=== PATIENT | female | born 1980 | race Caucasian/White ===

== ENCOUNTER 2017-06-01 09:18 | Day surgery (SDC) | payer BC ==
[~2017-06-01 09:18] MED LIST: Lactated Ringers 1,000 ML IV SCH; Lidocaine 1%/Sod Bicarbonate in NS 8.4% 1 ML Syringe IDERM PRN; Sodium Chloride 0.9% 10 ML Syringe FLUSH PRN
--- NOTE | 2017-06-01 10:34 | PCM.PREANE ---
Preanesthetic Assessment - Anesthesia/Transfusion/Family Hx Anesthesia History: Prior Anesthesia Without Reaction Family History of Anesthesia Reaction: No Transfusion History: No Prior Transfusion(s) - Review of Systems General: No Symptoms Pulmonary: No Symptoms Cardiovascular: No Symptoms Gastrointestinal: No Symptoms, Diarrhea (IF EATS ANYTHING) Neurological: No Symptoms Other: Reports: None - Physical Assessment NPO Status Date: 05/31/17 NPO Status Time: 22:30 O2 Sat by Pulse Oximetry: 93 Respiratory Rate: 18 Vital Signs: Last Vital Signs Temp 97.4 F 06/01/17 09:50 Pulse 73 06/01/17 09:50 Resp 18 06/01/17 09:50 BP 121/67 06/01/17 09:50 Pulse Ox 93 L 06/01/17 09:50 Height: 5 ft 6 in Weight: 162.386 kg ASA Class: 2 Mental Status: Alert & Oriented x3 Airway Class: Mallampati = 1 Dentition: Reports: Normal Dentition Thyro-Mental Finger Breadths: 3 Mouth Opening Finger Breadths: 3 ROM/Head Extension: Full Lungs: Clear to Auscultation, Normal Respiratory Effort Cardiovascular: Regular Rate, Regular Rhythm - Lab Values: Laboratory Last Values Urine HCG, Qual Negative (NEGATIVE) 06/01/17 09:58 - Allergies Allergies/Adverse Reactions: Allergies Allergy/AdvReac Type Severity Reaction Status Date / Time No Known Allergies Allergy Verified 05/31/17 16:29 - Blood Blood Available: No - Acknowledgements Anesthesia Type Planned: MAC Pt an Appropriate Candidate for the Planned Anesthesia: Yes Alternatives and Risks of Anesthesia Discussed w Pt/Guardian: Yes Pt/Guardian Understands and Agrees with Anesthesia Plan: Yes PreAnesthesia Questionnaire HEENT History: Reports: Allergic Rhinitis Cardiovascular History: Reports: None Respiratory History: Reports: Other (See Below) Other Respiratory History: cough, un diagnosed sleep apnea Gastrointestinal History: Reports: None Genitourinary History: Reports: None 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 History: Reports: Polycystic Ovaries Musculoskeletal History: Reports: None Neurological History: Reports: None Endocrine/Metabolic History: Reports: Obesity/BMI 30+ Hematologic History: Reports: None Immunologic History: Reports: None Oncologic (Cancer) History: Reports: None Dermatologic History: Reports: None - Past Surgical History Head Surgeries/Procedures: Reports: None HEENT Surgical History: Reports: None, Myringotomy w Tube(s), Tonsillectomy Cardiovascular Surgical History: Reports: None Respiratory Surgical History: Reports: None GI Surgical History: Reports: Cholecystectomy Female Surgical History: Reports: None Male Surgical History: Reports: None Endocrine Surgical History: Reports: None Neurological Surgical History: Reports: None Musculoskeletal Surgical History: Reports: None Oncologic Surgical History: Reports: None Dermatological Surgical History: Reports: None - SUBSTANCE USE Smoking Status *Q: Current Every Day Smoker (1 PPD) Tobacco Use Within Last Twelve Months: Cigarettes Second Hand Smoke Exposure: Yes Days Per Week of Alcohol Use: 0 Recreational Drug Use History: No - HOME MEDS Home Medications: Home Meds Lactobacillus Combination No.4 [Probiotic] 1 cap PO DAILY 05/31/17 [History] Levonorgestrel [Mirena] 1 unit VAG ASDIRECTED 05/31/17 [History] Pantoprazole Sodium [Protonix] 40 mg PO DAILY 05/31/17 [History] Ranitidine HCl [Zantac] 150 mg PO DAILY 05/31/17 [History] Sucralfate [Carafate] 1 gm PO QID 05/31/17 [History] - CURRENT (IN HOUSE) MEDS Current Meds: Current Medications Lactated Ringer's (Ringers, Lactated) 1,000 mls @ 125 mls/hr IV ASDIRECTED SIXTO Stop: 06/01/17 23:00 Lidocaine/Sodium Bicarbonate (Buffered Lidocaine 1% In Ns 8.4%) 0.25 ml IDERM ONETIME PRN PRN Reason: Prior to IV Start Stop: 06/01/17 18:00 Sodium Chloride (Saline Flush) 10 ml FLUSH ASDIRECTED PRN PRN Reason: Keep Vein Open Stop: 06/01/17 18:00
[2017-06-01] MEDS ORDERED: Propofol 200 MG/20 ML SDV ONE ×2 (10:41→10:42)
[2017-06-01] MEDS ORDERED: fentaNYL 100 MCG/2 ML SDV ONE (10:41)
[2017-06-01] MEDS ORDERED: Midazolam 1 MG/ML 2 ML SDV ONE (10:42)
--- NOTE | 2017-06-01 11:54 | PCM.OPNOTE ---
- General Post-Op/Procedure Note Date of Surgery/Procedure: 06/01/17 Operative Procedure(s): egd with bx and colonosocopy to cecum Pre Op Diagnosis: epigastric pain and change in bowel habits Post-Op Diagnosis: Same Anesthesia Technique: MAC Primary Surgeon: Huey Curiel EBL in mLs: 0 Complications: None Condition: Good
--- NOTE | 2017-06-01 11:56 | PCM48HPAN ---
Post Anesthesia Note - EVALUATION WITHIN 48HRS OF ANESTHETIC Vital Signs in Normal Range: Yes Patient Participated in Evaluation: Yes Respiratory Function Stable: Yes Airway Patent: Yes Cardiovascular Function Stable: Yes Hydration Status Stable: Yes Pain Control Satisfactory: Yes Nausea and Vomiting Control Satisfactory: Yes Mental Status Recovered: Yes Resp Rate: 20
--- NOTE | 2017-06-02 06:58 | OR ---
DATE OF OPERATION: 06/01/2017 SURGEON: Huey Curiel MD PREOPERATIVE DIAGNOSIS: Epigastric pain. POSTOPERATIVE DIAGNOSIS: Epigastric pain. OPERATION PERFORMED: Esophagogastroduodenoscopy with biopsy. FINDINGS: Some erythema suggesting of duodenitis in the duodenal bulb and thinning of the gastric mucosa around the antrum suggesting gastritis. ANESTHESIA: Done under IV sedation. DESCRIPTION OF PROCEDURE: The patient was taken to the endoscopy room, placed in a supine position, connected to monitoring equipment, and given IV sedation. She was placed in the left lateral position. Bite block was inserted and video Olympus gastroscope placed in the posterior oropharynx, under direct vision, threaded past the cricopharyngeus, down the esophagus, and into the stomach. The stomach was insufflated, and the scope passed through the pylorus to second portion of the duodenum. It was slowly withdrawn showing normal second portion of the duodenum, but the duodenal bulb showed the findings as described above. The scope was withdrawn to the antrum, which also showed some thinning of gastric mucosa suggesting gastritis, which was biopsied for H. pylori. Body, cardia, and fundus of the stomach did not show any pathology. J-maneuver demonstrated an intact hiatus. Scope was withdrawn to the GE junction, which was sharp and showed just some chronic esophagitis. No acute pathology. The GE junction was located at 38 cm. The rest of the esophagus was viewed as the scope withdrawn was unremarkable. The patient tolerated the procedure. Specimens sent to pathology in a labeled container and IV sedation continued for colonoscopy. ESTIMATED BLOOD LOSS: MMODAL /[id number]
--- NOTE | 2017-06-02 06:58 | OR ---
DATE OF OPERATION: 06/01/2017 SURGEON: Huey Curiel MD PREOPERATIVE DIAGNOSIS: Change in bowel habits. POSTOPERATIVE DIAGNOSIS: Change in bowel habits. OPERATION PERFORMED: Colonoscopy to cecum. FINDINGS: A normal study. ANESTHESIA: Procedure done under IV sedation. DESCRIPTION OF PROCEDURE: The patient was taken to the treatment room, connected to monitoring equipment, and given IV sedation for upper GI endoscopy, which was continued for colonoscopy. She was placed in left lateral position. Perianal area was inspected and was normal. Rectal exam showed good sphincter tone. A video Olympus colonoscope was then introduced and threaded up without problem to the cecum, where the appendicular orifice and ileocecal valve were noted. Prep was excellent throughout the colon. [place] cleansing score grade A. The scope was slowly withdrawn showing the cecum, ascending colon, transverse colon, descending colon, sigmoid colon, and rectum. The patient tolerated the procedure. The above noted was found. She was sent to recovery room in a stable condition and will be followed up in the clinic. ESTIMATED BLOOD LOSS: MMODAL /[id number]
== END 2017-06-01 12:35 | disposition home or self-care (01) ==
LOC: JD.SDS 09:18
PROVIDERS: ATTEND Surgery
DX: R19.4 Change in bowel habit (principal); K29.50 Unspecified chronic gastritis without bleeding; F17.210 Nicotine dependence, cigarettes, uncomplicated; Z90.49 Acquired absence of other specified parts of digestive tract; Z98.890 Other specified postprocedural states; Z79.899 Other long term (current) drug therapy
CPT/HCPCS: 43239; 45378; 81025; J2250; J3010; J7120; J2704

== ENCOUNTER 2018-07-06 12:23 | Emergency (ER) | payer BC ==
--- NOTE | 2018-07-06 13:06 | EDM.PDOC ---
ED HPI GENERAL MEDICAL PROBLEM - General Chief Complaint: Respiratory Problem Stated Complaint: SOB Time Seen by Provider: 07/06/18 12:39 Source of Information: Reports: Patient, Family (Sister), RN Notes Reviewed History Limitations: Reports: No Limitations - History of Present Illness INITIAL COMMENTS - FREE TEXT/NARRATIVE: Medical records from the [place] ED indicate that the patient was seen there this past 06/30/2018, with a complaint of persistent nonproductive cough , dyspnea, and wheezing. She stated at that time that her symptoms had been going on for approximately 2 weeks. She stated that she had previously been seen at an urgent care, received some treatments including nebs, steroids, and antibiotics, but that her symptoms persisted. She had not experienced fever or chills. She was found to be afebrile in the [place] ED with an oxygen saturation of 93% on room air. On examination, she was found to have decreased breath sounds, crackles, and rales. Workup included a CBC, CMP, lactic acid level, a qualitative hCG level, and an influenza swab. If a chest x-ray was performed, none was documented. The patient's WBC count was found to be elevated at 12.96, however, a manual differential was not performed, and recall that the patient was on steroids from the urgent care. The remainder of her workup was entirely unremarkable. The patient was admitted to the hospital with diagnoses of acute respiratory failure with hypoxia, bronchitis, morbid obesity , sleep apnea, and tobacco abuse. She was treated with albuterol, DuoNeb's, Solu -Medrol, azithromycin, codeine with promethazine cough syrup, and oxycodone. She was given subcutaneous Lovenox for DVT prophylaxis. She was given Zofran for nausea, and temazepam for insomnia. The patient tells me that she was discharged home this past 07/03/2018 with prescriptions for nebulized treatments and a MDI, and 2-day supply of antibiotics. She was not given a space chamber or peak flow meter. The patient states that she has not followed up since her discharge from [facility]. The patient now presents to our ED with a complaint of persistent non- productive cough, wheezing, and dyspnea, all worse if she is supine. She has not developed a fever. She reports a 30 pound weight gain over the past 3 weeks , and in particular, an increase in her dorsocervical fat pad. The patient is morbidly obese, with a BMI of 60.5. She has smoked half a pack of cigarettes since 15 years of age, although stopped about 2 or 3 weeks ago. 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 She denies having history of allergic rhinitis (in contrast from the H&P from [place]) and she denies having symptoms of postnasal drip. There is no history of asthma. Additionally, while one of the patient's admission diagnoses was obstructive sleep apnea, the patient states that she has never been tested for MARCELLO. The patient's PCP is Sheri Fried NP, in [place]. Generalized Pain Score (Numeric/FACES): 5 - Related Data Allergies Allergy/AdvReac Type Severity Reaction Status Date / Time No Known Allergies Allergy Verified 06/30/18 10:22 CDT Home Meds: Home Meds Albuterol/Ipratropium [DuoNeb 3.0-0.5 MG/3 ML] 1 dose INH ASDIRECTED 06/30/18 [ History] Albuterol Sulfate [Proair Hfa] 2 puff INH ASDIRECTED 07/06/18 [History] Past Medical History Psychiatric History: Reports: Anxiety (untreated), Depression (untreated) Endocrine/Metabolic History: Reports: Obesity/BMI 30+ - Past Surgical History HEENT Surgical History: Reports: Myringotomy w Tube(s) (bilateral), Oral Surgery (wisdom teeth extraction), Tonsillectomy GI Surgical History: Reports: Cholecystectomy (around 2004) Social & Family History - Family History Family Medical History: Noncontributory - Tobacco Use Smoking Status *Q: Current Every Day Smoker Years of Tobacco use: 23 Packs/Tins Daily: 0.5 - Caffeine Use Caffeine Use: Reports: Coffee - Alcohol Use Alcohol Use History: No - Recreational Drug Use Recreational Drug Use: Yes Drug Use in Last 12 Months: No Recreational Drug Type: Reports: Marijuana/Hashish (last smoked around 1999) - Living Situation & Occupation Living situation: Reports: , with Spouse, with Family (1 son) 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 ED EXAM, GENERAL - Physical Exam Exam: See Below Exam Limited By: No Limitations General Appearance: Alert, WD/WN, No Apparent Distress Eye Exam: Bilateral Eye: EOMI, Normal Inspection Ears: Normal External Exam, Normal Canal, Hearing Grossly Normal, Normal TMs Nose: Normal Inspection, Normal Mucosa, No Blood Throat/Mouth: Normal Lips, Normal Teeth, Normal Gums, Normal Voice, No Airway Compromise, Other (Cobblestone appearance to the posterior oropharynx) Head: Atraumatic, Other (Hirsute) Neck: Normal Inspection, Supple, Non-Tender, Full Range of Motion. No: Lymphadenopathy (L), Lymphadenopathy (R) Respiratory/Chest: No Respiratory Distress, Lungs Clear, Normal Breath Sounds, No Accessory Muscle Use. No: Decreased Breath Sounds, Crackles, Rhonchi, Wheezing, Stridor, Prolonged Expiration Cardiovascular: Normal Peripheral Pulses, Regular Rate, Rhythm, No Gallop, No JVD, No Murmur, No Rub Peripheral Pulses: 4+: Radial (L), Radial (R) GI/Abdominal: Normal Bowel Sounds, Soft, Non-Tender, No Organomegaly, No Distention, No Abnormal Bruit, No Mass, Other (Obese) (Female) Exam: Deferred Rectal (Female) Exam: Deferred Back Exam: Normal Inspection, Full Range of Motion, Other (Enlarged dorsocervical fat pad) Extremities: Normal Inspection, Normal Range of Motion, Normal Capillary Refill , Other (Trace bilateral lower extremity edema) Neurological: Alert, Oriented, Normal Cognition, No Motor/Sensory Deficits Psychiatric: Normal Affect Skin Exam: Warm, Dry, Intact, Normal Color, No Rash Course - Vital Signs Last Recorded V/S: Last Vital Signs Temp 36.3 C 07/06/18 12:35 Pulse 104 H 07/06/18 12:35 Resp 20 07/06/18 12:35 BP 109/89 07/06/18 12:35 Pulse Ox 97 07/06/18 12:35 - Orders/Labs/Meds Meds: Medications Discontinued Medications Generic Name Dose Route Start Last Admin Trade Name Freq PRN Reason Stop Dose Admin Sodium Chloride 1,000 mls @ 150 mls/hr 07/06/18 13:45 07/06/18 14:11 Normal Saline IV 150 mls/hr ASDIRECTED SIXTO Administration Sodium Chloride 100 mls @ 80 mls/hr 07/06/18 13:45 07/06/18 14:28 Normal Saline IV 80 mls/hr ASDIRECTED SIXTO Administration Iohexol 75 ml 07/06/18 13:41 07/06/18 14:25 Omnipaque IVPUSH 07/06/18 13:42 75 ml ONETIME ONE Administration Sodium Chloride 10 ml 07/06/18 13:41 07/06/18 14:28 Saline Flush FLUSH 10 ml ONETIME PRN Administration KEEP VEIN OPEN - Re-Assessments/Exams Free Text/Narrative Re-Assessment/Exam: 07/06/18 13:05 While the patient states that she is wheezing, her lungs are actually clear to auscultation throughout her entire lung alaniz, and there is no stridor. Her oxygen saturation is 97% on room air, and there is no history of fever. Clinically, I do not suspect pneumonia, however, I have ordered a chest x-ray. Other potential causes of cough in this patient could include a pulmonary embolus, concerning because of the patient's report of increased swelling ( although her swelling appears to be more adipose than edema). GERD with occult laryngopharyngeal reflux could be the cause, given her body habitus, her report of increased symptoms if supine, and the finding of a cobblestone appearance to her posterior oropharynx. Similarly, postnasal drip can cause a cobblestone appearance of the posterior oropharynx, even if the patient is unaware of other symptoms. 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 Additionally, along with bronchial asthma, is a lack of wheezing on auscultation. Similarly, one would expect non-asthmatic eosinophilic bronchitis to cause rhonchi +/- wheezing. 07/06/18 13:31 2-view chest radiograph appears to be grossly normal. The cardiac silhouette is within normal limits. No pulmonary vascular congestion. No pleural effusions. No focal infiltrate. No pneumothorax. Formal read per the Radiologist pending. 07/06/18 13:39 Of all of the above possible causes of cough, none can truly be diagnosed from the ED, with the exception of a PE. I therefore ordered a CT angiogram of the chest to rule out a PE. The patient's BUN/Cr were normal on 06/30/2018. 07/06/18 15:30 CT angiogram of the chest is read by Dr. Barnett as: 1. Pulmonary arteries not optimally seen secondary to patient body habitus. Within limitations, nothing is seen to indicate pulmonary emboli within the main or segmental branches. Smaller subsegmental pulmonary emboli could be missed. 2. Other incidental findings. Nothing acute is appreciated. 07/06/18 16:09 Test results discussed with the patient and her sister. By ruling out a PE, the most likely causes of the patient's symptoms are laryngopharyngeal reflux or postnasal drip, such as with allergic rhinitis. The patient tells me that she had both a colonoscopy and EGD at this facility less than one year ago, and that nothing was found. This significantly decreases the likelihood of laryngopharyngeal reflux as the cause. I'm therefore going to recommend that the patient start using an [id number] nasal steroid spray, such as Flonase or Nasonex. If that fails to improve the patient's symptoms within about a week, she should start taking a H2 richa twice a day, to see if that helps. If that were the case, however, the patient may benefit from a repeat EGD. In either case, I would like the patient to follow-up with Dr. Gudino in our clinic, to help coordinate her care. Departure - Departure Time of Disposition: 16:20 Disposition: Home, Self-Care 01 Condition: Good Clinical Impression: Persistent dry cough - Discharge Information *PRESCRIPTION DRUG MONITORING PROGRAM REVIEWED*: Not Applicable *COPY OF PRESCRIPTION DRUG MONITORING REPORT IN PATIENT GAIL: Not Applicable Instructions: Cough, Adult, [id number] Referrals: Sheri Fried NP [Primary Care Provider] - Graeme Coles MD [Physician] - Forms: ED Department Discharge Additional Instructions: You were seen in the emergency room for 3 weeks of a persistent dry cough, with shortness of breath and the sensation of wheezing, worse if you're lying down. Your workup from the ER in [place] was reviewed. Workup in our ER included a chest x-ray and a CT angiogram of your chest, both of which were normal. You do not have pneumonia, nor did you on 06/30/2018. You do not have a blood clot in your lungs. The cause of your symptoms is not entirely clear, but is most likely due to either postnasal drip from allergic rhinitis (seasonal allergies), or, less likely, from laryngopharyngeal reflux = acid from your stomach going all the way up to your throat, and spilling into your windpipe. Much less likely causes include asthma, non-asthmatic eosinophilic bronchitis, or occupational asthma. We recommend that you start using an [id number] nasal steroid spray, such as Flonase or Nasonex, as directed on the label. We recommend that you follow-up with Dr. Graeme Gudino in our clinic this coming week. If you need to see an ENT or get an EGD, Dr. Gudino can arrange for that. If any other problems, please do not hesitate to return to the ER.
[2018-07-06] MEDS ORDERED: Iohexol 350 MG/ML 75 ML Bottle IVPUSH ONE (13:41)
[2018-07-06] MEDS ORDERED: Sodium Chloride 0.9% 1,000 ML IV SCH (13:45)
[2018-07-06] MEDS ORDERED: Sodium Chloride 0.9% 100 ML IV SCH (13:45)
[2018-07-06] MEDS: Sodium Chloride 0.9% 10 ML Syringe FLUSH PRN ×2 (14:08→14:28)
--- NOTE | 2018-07-06 14:27 | CR ---
Chest: Two views of the chest were obtained. Comparison: No prior chest x-ray. Heart size and mediastinum are normal. Lungs are clear. Bony structures are unremarkable. Impression: 1. Nothing acute is seen on two-view chest x-ray. Diagnostic code #1
--- NOTE | 2018-07-06 15:25 | CT ---
CT chest Technique: Multiple axial sections through the chest were obtained. Intravenous contrast was utilized. Study performed as pulmonary angiogram protocol. Findings: Contrast enhancement is less than optimal secondary to patient body habitus. Within this limitation, there are no filling defects within the main or segmental branches of the pulmonary arteries but smaller subsegmental pulmonary emboli could easily be missed. Mediastinum and hilar regions are unremarkable. No pericardial thickening is seen. Small portion of the visualized upper abdominal structures are unremarkable. Surgical clips are seen from prior cholecystectomy. No acute parenchymal change is seen. Bone window setting show nothing acute. Impression: 1. Pulmonary arteries not optimally seen secondary to patient body habitus. Within limitations, nothing is seen to indicate pulmonary emboli within the main or segmental branches. Smaller subsegmental pulmonary emboli could be missed. 2. Other incidental findings. Nothing acute is appreciated. Diagnostic code #2
== END 2018-07-06 16:34 | disposition home or self-care (01) ==
LOC: JD.ED 12:23
DX: R05 Cough (principal); R06.00 Dyspnea, unspecified
CPT/HCPCS: 71046; 71275; 96360; 96361; 99285; J7030; J7040; Q9967; 99283

== ENCOUNTER 2024-02-19 14:52 | Day surgery (SDC) | payer BC ==
[2024-02-19] MEDS: Lactated Ringers 1,000 ML IV SCH (12:15)
[~2024-02-19 14:52] MED LIST changes: +Lactated Ringers 1,000 ML ONE; -Lidocaine 1%/Sod Bicarbonate in NS 8.4% 1 ML Syringe IDERM PRN; +Lidocaine 2% 5 ML SDV ONE; +Propofol 200 MG/20 ML SDV ONE; +Sodium Chloride 0.9% 10 ML Syringe FLUSH SCH
== END 2024-02-19 15:15 | disposition home or self-care (01) ==
LOC: JD.SDS 14:52
PROVIDERS: ATTEND Surgery
DX: D12.3 Benign neoplasm of transverse colon (principal); D12.5 Benign neoplasm of sigmoid colon; K44.9 Diaphragmatic hernia without obstruction or gangrene; F32.A Depression, unspecified; F41.9 Anxiety disorder, unspecified; K21.9 Gastro-esophageal reflux disease without esophagitis; E66.01 Morbid (severe) obesity due to excess calories; Z68.43 Body mass index [BMI] 50.0-59.9, adult; Z87.891 Personal history of nicotine dependence; Z79.899 Other long term (current) drug therapy; Z91.038 Other insect allergy status; Z91.040 Latex allergy status
CPT/HCPCS: 00813; 81025; J2704; J3490; J7120